=== PATIENT | female | born 1980 | race Caucasian/White ===

== ENCOUNTER 2019-05-22 19:21 | Emergency (ER) | payer BC, OTHER ==
[2019-05-22] MEDS ORDERED: HYDROXYZINE PAMOATE 25 MG CAPSULE PO ONE (22:09)
[2019-05-22] MEDS ORDERED: NORMAL SALINE 1000 ML 1,000 ML IV ONE (22:10)
[2019-05-22 22:24] LABS: ABSOLUTE BASOPHILS # (AUTO) 0.1 10^3/uL (0.0-0.2); ABSOLUTE EOSINOPHILS # (AUTO) 0.2 10^3/uL (0.0-0.6); ABSOLUTE LYMPHOCYTES (AUTO) 3.2 10^3/uL (0.5-4.7); ABSOLUTE MONOCYTES (AUTO) 0.4 10^3/uL (0.1-1.4); ABSOLUTE NEUT (AUTO) 4.8 10^3/uL (1.7-8.2); BASOPHILS % (AUTO) 1.3 % (0-2); EOSINOPHILS % (AUTO) 2.3 % (0-6); HEMATOCRIT 45.9 % (36.0-47.0); HEMOGLOBIN 15.9 g/dL (12.0-15.5); LYMPHOCYTES % (AUTO) 36.7 % (13-45); MEAN CORPUSCULAR HEMOGLOBIN 29.8 pg (27.0-33.4); MEAN CORPUSCULAR HGB CONC 34.5 g/dL (32.0-36.0); MEAN CORPUSCULAR VOLUME 86 fl (80-97); PLATELET COUNT 256 10^3/uL (150-450); RED BLOOD COUNT 5.32 10^6/uL (3.72-5.28); SEGMENTED NEUTROPHILS % (AUTO) 54.7 % (42-78); TOTAL CELLS COUNTED % (AUTO) 100 %; WHITE BLOOD COUNT 8.8 10^3/uL (4.0-10.5)
[2019-05-22 23:25] LABS: ALBUMIN 4.5 g/dL (3.5-5.0); ALKALINE PHOSPHATASE 70 U/L (38-126); ANION GAP 11 (5-19); ASPARTATE AMINO TRANSFERASE 61 U/L (14-36); BILIRUBIN,DIRECT 0.1 mg/dL (0.0-0.4); BILIRUBIN,TOTAL 0.7 mg/dL (0.2-1.3); BLOOD UREA NITROGEN 16 mg/dL (7-20); CALCIUM 9.6 mg/dL (8.4-10.2); CARBON DIOXIDE 25 mmol/L (22-30); CHLORIDE 106 mmol/L (98-107); GLUCOSE 98 mg/dL (75-110); POTASSIUM 4.4 mmol/L (3.6-5.0); TOTAL PROTEIN 7.5 g/dL (6.3-8.2)
[2019-05-22 23:54] VITALS: BP 140/84
[2019-05-22 23:55] LABS: APPEARANCE,URINE SLIGHTLY-CLOUDY; BILIRUBIN,URINE NEGATIVE (NEGATIVE); COLOR,URINE YELLOW; GLUCOSE, URINE NEGATIVE (NEGATIVE); KETONES,URINE NEGATIVE (NEGATIVE); LEUKOCYTE ESTERASE,URINE NEGATIVE (NEGATIVE); NITRITE,URINE NEGATIVE (NEGATIVE); PROTEIN,URINE NEGATIVE (NEGATIVE); URINE SPECIFIC GRAVITY 1.023; UROBILINOGEN,URINE NEGATIVE mg/dL (<2.0)
--- NOTE | 2019-05-23 00:54 | ER Document Report ---
Entered by ERIC JACKSON SCRIBE 05/22/192209 Acting as scribe for:JARRETT MONTERO DO ED GI/ - General Chief Complaint: Headache Stated Complaint: HEADACHE,NAUSEA,JITTERY Time Seen by Provider: 05/22/19 21:22 Mode of Arrival: Ambulatory Information source: Patient Notes: Patient is a 38 year old female that presents to the emergency department today with complaints of "thinking she has diabetes". Patient states that she quit smoking in August and she has noticed that her anxiety is much worse now. Patient states that her toes have been numb and she has had frequent yeast infections. Patient states she always feels thirsty. Patient denies vomiting and dysuria. - Related Data Allergies/Adverse Reactions: ofloxacin [From Floxin] Allergy (Verified 05/22/19 22:45) Past Medical History - General Information source: Patient - Social History Smoking Status: Former Smoker Cigarette use (# per day): No Chew tobacco use (# tins/day): No Frequency of alcohol use: None Drug Abuse: None Lives with: Family Family History: Reviewed & Not Pertinent Patient has suicidal ideation: No Patient has homicidal ideation: No Neurological Medical History: Reports: Hx Migraine Review of Systems - Review of Systems Constitutional: See HPI, Other - frequent thirst EENT: No symptoms reported Cardiovascular: No symptoms reported Respiratory: No symptoms reported Gastrointestinal: See HPI, Nausea. denies: Vomiting Genitourinary: denies: Dysuria Female Genitourinary: No symptoms reported Musculoskeletal: No symptoms reported Skin: No symptoms reported Hematologic/Lymphatic: No symptoms reported Neurological/Psychological: No symptoms reported -: Yes All other systems reviewed and negative Physical Exam - Vital signs Vitals: Temp Pulse Resp BP Pulse Ox 97.8 F 85 18 182/113 H 98 05/22/19 19:24 05/22/19 19:24 05/22/19 19:24 05/22/19 19:24 05/22/19 19:24 - Notes Notes: Physical Exam: General: Alert, appears well. Hypertensive due to anxiety. HEENT: Normocephalic. Atraumatic. PERRL. Extraocular movements intact. Oropharynx clear. Neck: Supple. Non-tender. Respiratory: No respiratory distress. Clear and equal breath sounds bilaterally. Cardiovascular: Regular rate and rhythm. Abdominal: Normal Inspection. Non-tender. No distension. Normal Bowel Sounds. Back: No gross abnormalities. Extremities: Moves all four extremities. Upper extremities: Normal inspection. Normal ROM. Lower extremities: Normal inspection. No edema. Normal ROM. Neurological: Normal cognition. AAOx4. Normal speech. Psychological: Anxious. Skin: Warm. Dry. Normal color. Course - Re-evaluation Re-evalutation: 05/23/19 00:53 Patient much improved after Vistaril. No further anxiety. Blood pressure down, which is likely related to anxiety. No acute findings on blood work or urine. No evidence for diabetes. Patient already has a follow-up appointment on Monday. She will be discharged home with prescription for Vistaril as needed for panic attack. Return if further concerns. Understands agrees with plan. Stable for discharge. - Vital Signs Vital signs: Temp Pulse Resp BP Pulse Ox 98.1 F 68 17 140/84 H 98 05/22/19 23:51 05/22/19 23:51 05/22/19 23:51 05/22/19 23:51 05/22/19 23:51 - Laboratory Result Diagrams: 05/22/19 22:09 05/22/19 22:09 Laboratory results interpreted by me: 05/22/19 05/22/19 22:09 22:09 RBC 5.32 H Hgb 15.9 H AST 61 H Discharge - Discharge Clinical Impression: Nausea, Anxiety Condition: Stable Disposition: HOME, SELF-CARE Instructions: Anxiety ([facility]), Nausea or Vomiting, Nonspecific ([facility]) Prescriptions: Hydroxyzine Pamoate [Vistaril 25 mg Capsule] 25 mg PO BIDP PRN #30 capsule PRN Reason: I personally performed the services described in the documentation, reviewed and edited the documentation which was dictated to the scribe in my presence, and it accurately records my words and actions.
== END 2019-05-23 00:45 | disposition home or self-care (01) ==
LOC: ER 19:21
DX: R11.0 Nausea (principal); F41.9 Anxiety disorder, unspecified; R51 Headache; Z87.891 Personal history of nicotine dependence
CPT/HCPCS: 99284; 96360; 36415; 82553; 82962; 83690; 85025; 81025; 80053; 81001; J7030

== ENCOUNTER 2019-05-24 20:50 | Emergency (ER) | payer OTHER ==
[2019-05-24 20:57] VITALS: BP 177/103
--- NOTE | 2019-05-24 21:36 | ER Document Report ---
HPI - HPI Time Seen by Provider: 05/24/19 21:30 Notes: Patient is a 38-year-old female with a history of anxiety who presents complaining of continued elevated blood pressure over the past couple days. Patient was noted to be triple of her triple couple days ago and again today. Patient states that her blood pressure is elevated despite taking her Vistaril regularly. Patient states that she otherwise feels well and is eating and drinking without difficulty. She is urinating normally and having normal bowel movements. She has no other concerns or complaints. She notes her blood pressure was high again so she came to the emergency department for evaluation. She had comprehensive blood analysis performed 2 days ago which was unremarkable. Denies any headache, fever, neck pain, changes in vision/speech/mentation/hearing, URI, sore throat, chest pain, palpitations, syncope, cough, shortness of breath, wheeze, dyspnea, abdominal pain, nausea/vomiting/diarrhea, urinary retention, dysuria, hematuria, loss of control of bowel or bladder, numbness/tingling, saddle anesthesia, muscle paralysis/weakness, or rash. - ROS Systems Reviewed and Negative: Yes All other systems reviewed and negative - REPRODUCTIVE Reproductive: DENIES: : Past Medical History - Social History Smoking Status: Former Smoker Family History: Reviewed & Not Pertinent Neurological Medical History: Reports: Hx Migraine Vertical Provider Document - CONSTITUTIONAL Agree With Documented VS: Yes Notes: PHYSICAL EXAMINATION: GENERAL: Well-appearing, well-nourished and in no acute distress. HEAD: Atraumatic, normocephalic. EYES: Pupils equal round and reactive to light, extraocular movements intact, sclera anicteric, conjunctiva are normal. ENT: Nares patent and without discharge. oropharynx clear without exudates. No tonsilar hypertrophy or erythema. Moist mucous membranes. NECK: Normal range of motion, supple without lymphadenopathy LUNGS: Breath sounds clear to auscultation bilaterally and equal. No wheezes rales or rhonchi. HEART: Regular rate and rhythm without murmurs, rubs, gallops. Extremities: No cyanosis, clubbing, or edema b/l. Peripheral pulses 2+. Capillary refill less than 3 seconds. NEUROLOGICAL: Normal speech, normal gait. PSYCH: Normal mood, normal affect. SKIN: Warm, Dry, normal turgor, no rashes or lesions noted. Course - Re-evaluation Re-evalutation: 05/24/19 21:37 Patient is an afebrile, well-hydrated, 38-year-old female who presents with a symptom medic hypertension. Vitals are acceptable without significant tachycardia, tachypnea, or hypoxia. PE is otherwise unremarkable. Patient is nontoxic-appearing and is tolerating p.o. without difficulty. According to ACEP guidelines, no further work up is warranted for asymptomatic hypertension, and patient had a comprehensive blood analysis performed 2 days ago which was unremarkable. Low suspicion for any ACS, PE, pneumothorax, pericarditis, dissection, respiratory compromise, severe dehydration, sepsis, meningitis, or other systemic emergent condition at this time. Patient is aware that her condition can change from initial presentation and she needs to monitor symptoms closely and seek medical attention for any acute changes. Recommend conservative measures for symptoms. Recheck with your PCM in 3-5 days. She is scheduled for an appointment on Monday. Return to the ED with any worsening/concerning symptoms otherwise as reviewed in discharge. Patient is in agreement. - Vital Signs Vital signs: Temp Pulse Resp BP Pulse Ox 98.2 F 94 20 177/103 H 98 05/24/19 20:54 05/24/19 20:54 05/24/19 20:54 05/24/19 20:54 05/24/19 20:54 Discharge - Discharge Clinical Impression: Asymptomatic hypertension Condition: Stable Disposition: HOME, SELF-CARE Instructions: High Blood Pressure ([facility]) Additional Instructions: Maintain adequate fluid and food intake Take home medications as directed Low sodium/fat diet Exercise regularly Monitor blood pressure daily and keep a log Monitor symptoms for any acute changes Recheck with your PCM in 3-5 days Consider a follow-up with cardiology Return to the ED with any worsening symptoms and/or development of fever, headache, chest pain, palpitations, syncope, shortness of breath, trouble breathing, abdominal pain, n/v/d, blood in stool/urine, loss of control of bowel/bladder, urinary retention, muscle weakness/paralysis, numbness/tingling, or other worsening symptoms that are concerning to you. Prescriptions: Lisinopril [Prinivil 10 mg Tablet] 10 mg PO DAILY #15 tablet Referrals: CHARLES CHEEMA MD [ACTIVE STAFF] - Follow up as needed
[2019-05-24] MEDS ORDERED: LISINOPRIL 10 MG TABLET PO ONE (21:39)
== END 2019-05-24 21:45 | disposition home or self-care (01) ==
LOC: ER 20:50
DX: I10 Essential (primary) hypertension (principal); Z79.899 Other long term (current) drug therapy
CPT/HCPCS: 99283